=== PATIENT | male | born 1945 | race Caucasian/White ===

== ENCOUNTER 2017-11-12 16:19 | Emergency (ER) | payer OTHER ==
[~2017-11-12] VITALS: Ht 177.8 cm; Wt 83.0 kg
[2017-11-12 16:33] VITALS: TEMP 36.5; Ht 177.8 cm; Wt 83.0 kg
[2017-11-12] MEDS ORDERED: ZOLP10TA PO (17:00)
[2017-11-12] MEDS ORDERED: TAMS0.4C38 PO (17:00)
[2017-11-12] MEDS ORDERED: PRLSR20 PO (17:00)
[2017-11-12] MEDS ORDERED: MCRHC/8025 PO (17:00)
[2017-11-12] MEDS ORDERED: SIMV40TA2 PO (17:00)
[2017-11-12] MEDS ORDERED: MULT-513 PO (17:00)
[2017-11-12] MEDS ORDERED: AMIT10TA6 PO (17:00)
[2017-11-12] MEDS ORDERED: CYAN100020 PO (17:00)
--- NOTE | 2017-11-12 17:33 | EMERGENCY ROOM VISIT NOTE ---
ED Visit Note First contact with patient: 16:40 Patient was seen by our PA/ELECTRONIC HEAT SEAL OPERATOR. I was involved in the patient's care and did evaluate the patient myself. I was involved in the care throughout the ER stay. The patient will be seeing ophthalmology tomorrow for his retinal issues. The retail coverage merchandiser lead was consulted. The patient is stable for discharge.
--- NOTE | 2017-11-12 17:33 | EMERGENCY ROOM VISIT NOTE ---
History First contact with patient: 16:40 Chief Complaint: EYE ASSESSMENT Stated Complaint: VISION PROBLEM WITH L EYE PRIOR RETINAL DAMAGE History of Present Illness The patient is a 72 year old male who presents to the Emergency Room via private vehicle accompanied by female with complaints of "vision problems left thigh, prior retinal damage". The patient states that he has previous retinal damage from an injury 40 years ago. He has been doing well, and did have cataract surgery one year ago. He states that he was fine up until just prior to arrival he was working on a computer, face down and notes that when he went to stand up he noticed vision changes in the left eye. He describes them as looking for a [place] in the left eye. There is a red color change. Vision is blurry. He notes no pain. No trauma. He notes that he has been following with an sewing machinist, Dr. Cheema. Review of Systems A complete 6-point Review of Systems was discussed with the patient, with pertinent positives and negatives listed in the History of Present Illness. All remaining Review of Systems questions can be considered negative unless otherwise specified. Past Medical/Surgical History Previous retinal damage Family History No pertinent Social History Smoking Status: Never Smoker Pt. lives locally with Current/Historical Medications Scheduled Amitriptyline Hcl (Elavil), 10 MG PO DAILY Cyanocobalamin (Vitamin B12), 1 TAB PO DAILY Multivitamins/Minerals (Mvi With Minerals), 1 TAB PO DAILY Omeprazole (Prilosec), 20 MG PO DAILY Simvastatin (Zocor), 40 MG PO QPM Tamsulosin Hcl (Flomax), 0.4 MG PO DAILY Telmisartan/Hctz (Micardis Hct), 1 TAB PO DAILY Zolpidem Tartrate (Ambien), 10 MG PO HS Physical Exam Vital Signs Date Time Temp Pulse Resp B/P (MAP) Pulse Ox O2 Delivery O2 Flow Rate FiO2 11/12/17 17:53 77 18 143/82 98 11/12/17 16:33 36.5 86 20 153/97 97 Room Air Right Eye Acuity: 20/20 Left Eye Acuity: 20/200 Physical Exam VITAL SIGNS - Vital signs and nursing notes were reviewed. Stable. Hypertensive. GENERAL - 72-year-old female appearing his stated age who is in no acute distress. Communicates well with provider and answers questions appropriately. SKIN - Without rashes. EYES - PERRL with EOMI bilaterally. Sclera anicteric. Funduscopic examination reveals within normal limit exam in the central axis of vision in the left eye however to the periphery on funduscopic there is darkening. Right eye unremarkable. Medical Decision & Procedures Medical Decision Patient was seen and evaluated as above. Presents to us today with left eye visual disturbances. He has been following closely with ophthalmology. There is no speech troubles or weakness. No evidence of CVA. Visual acuity disrupted in the left eye. Funduscopic is concerning for that of an abnormality. Case was discussed with the attending physician, and subsequently the on-call sewing machinist, Dr. Cheema. This is to the patient follows with. Dr. Cheema recommended having the patient follow-up tomorrow at his office. This appears to be reasonable. He also recommended having the patient why on his right side, and avoid left side. He is to lay flat. The patient was educated upon management, educated upon worrisome symptoms which to return, had questions answered prior to discharge, and was discharged home in good condition. Medication list reviewed. He is hypertensive likely secondary to situation. In the evaluation and treatment of this patient, the following differential diagnoses were considered: Corneal Abrasion, retinal detachment, Conjunctivitis , Eye Contusion, Globe Injury, Orbital Floor Injury (Blowout Fracture), Corneal Ulcer, Keratitis, Herpes Zoster Opthalmic, Blepharitis, Orbital Cellulitis, Iritis, Scleritis/Episcleritis, Uveitis, Temporal Arteritis, Subconjunctival Hemorrhage. Impression Primary Impression: Visual disturbance of one eye Departure Information Dispostion Home / Self-Care Condition GOOD Referrals Hank Faith MD (PCP) Asif Cheema D.O. Patient Instructions [facility] Additional Instructions You were seen in the emergency Department for visual disturbances in your left eye. I spoke with Dr. Cheema and he would like to see her tomorrow morning in his office at your earliest convenience. Please try to sleep on your right side asleep and with the head of the bed flat. Please avoid left side. Please return with any new/concerning symptoms.
[2017-11-12 17:53] VITALS: BP 143/82; PULSE 77; O2SAT 98
[2017-11-15] MEDS ORDERED: ASPI81TA28 PO (09:36)
== END 2017-11-12 17:56 | disposition home or self-care (01) ==
LOC: C.EDB 16:22 → C.EDD 17:56
DX: H53.8 Other visual disturbances (principal); Z98.49 Cataract extraction status, unspecified eye; Z79.899 Other long term (current) drug therapy; R03.0 Elevated blood-pressure reading, without diagnosis of hypertension

== ENCOUNTER → 2017-11-18 | Day surgery (SDC) | payer OTHER ==
[2017-11-15 09:36] VITALS: Ht 177.8 cm; Wt 79.5 kg
[~2017-11-18] VITALS: Ht 177.8 cm; Wt 79.5 kg
[~2017-11-18] MED LIST: 500ML BSSPLUS 0.5ML EPI1:1000 IRRIG ONE; ACETAMINOPHEN 325 MG TAB PO PRN; AMIT10TA6 PO; ASPI81TA28 PO; ATROPINE SULFATE 0.1 MG/ML 5ML SYR IV PRN; ATROPINE SULFATE 1% OP OINT PER APPLICATION CHARGE ONE; ATROPINE SULFATE 1% OP SOLN 2 ML BTL ONE; BSS FLUSH ONE; BUPIVACAINE HCL 0.75% 10 ML AMP/VIAL ONE; CEFAZOLIN SOD 1 GM VIAL ONE; CYAN100020 PO; DEXAMETHASONE SOD INJ 4 MG/ML VIAL ONE; EpHEDrine SULFATE INJ 50 MG/ML AMP IV PRN; EpINEphrine INJ 1MG/ML AMP 1 MG/ML AMP ONE; FENTANYL CITRATE INJ 50 MCG/1 ML 2 ML VIAL IV PRN; FENTANYL CITRATE INJ 50 MCG/1 ML 2 ML VIAL ONE; HYALURONIDASE HUMAN 150 UNIT/ML INJ ONE; LACTATED RINGER'S 1000ML 500 ML IV SCH; LIDOCAINE HCL 2% 2 ML VIAL (20MG/ML) ONE; MCRHC/8025 PO; MIDAZOLAM HCL 1 MG/ML 2ML VIAL ONE; MULT-513 PO; NEOMYCIN/POLYMYX/DEXAMETH OP OINT PER APP CHARGE ONE; OCUCOAT 1 ML SOLN IO ONE; ONDANSETRON INJ 2 MG/ML 2 ML VIAL IV PRN; POVIDONE-IODINE OP SOLN (SURGERY CNTR CHARGING ONLY) ONE; PRLSR20 PO; PROPARACAINE 0.5% OP SOLN PER DROP CHARGE OPL SCH; PROPOFOL IV EMULSION 10 MG/ML 20 ML VIAL IV ONE; SIMV40TA2 PO; TAMS0.4C38 PO; TIMOLOL MALEATE 0.5% OP SOLN PER DROP CHARGE ONE; TRIAMCINOLONE ACETONIDE OPHTH 40 MG/ML VIAL STERILE IO ONE; ZOLP10TA PO
[2017-11-18] MEDS: PHENYLEPHRINE HCL 2.5% OP SOLN PER DROP CHARGE OPL SCH ×2 (06:39→06:44)
[2017-11-18] MEDS: TROPICAMIDE 1% OP SOLN PER DROP CHARGE OPL SCH ×2 (06:39→06:44)
--- NOTE | 2017-11-18 06:53 | History & Physical Bridge - SC ---
H&P Re-Evaluation Bridge Note: Pt has retinal detachment left eye and is having vitrectomy left eye. I have examined the patient, reviewed the History & Physical and in the interval since the performance of the History & Physical I have noted the following changes of clinical significance: No changes noted
--- NOTE | 2017-11-18 08:26 | [facility] Operative Report ---
Operative Report Operative Date Nov 18, 2017. Pre-Operative Diagnosis Retinal Detachment Post-Operative Diagnosis Same Procedure(s) Performed VITRECTOMY, LASER , GAS Surgeon Dr. Cheema Color Expert Surgeon(s) None Estimated Blood Loss 0 mL Specimens None Anesthesia Type MAC I attest to the content of the Intraoperative Record and any orders documented therein. Any exceptions are noted below.
--- NOTE | 2017-11-18 08:28 | [facility] Operative Report ---
Operative Report Date of Service Nov 18, 2017. Operative Report PREOPERATIVE DIAGNOSIS: Macula-off retinal detachment, left eye. ICD 10: H33.022 POSTOPERATIVE DIAGNOSIS: same. PROCEDURE: 1. Pars plana vitrectomy, 23 gauge. 2. Fluid-air exchange. 3. Endolaser. 4 Air-gas exchange with C3F8 14%. 5. SubTenon's injection of Triescence 20mg. All to the left eye. CPT CODE: 27163 SURGEON: Asif Cheema D.O. COMPLICATIONS: None. ESTIMATED BLOOD LOSS: None. SPECIMENS: None. ANESTHESIA: Retrobulbar block and MAC. INDICATIONS FOR PROCEDURE: Surgery is indicated to decrease risk of vision loss and potentially improve vision. CONSENT: The risks, benefits and alternatives were discussed with the patient including but not limited to decreased visual acuity, failure to achieve desired results, loss of the eye, infection, pain, glaucoma, lens changes, retinal tears, retinal detachment, the need for more procedures, drooping of the eyelid, blindness, and double vision. The patient is aware of risks and consents to the surgery. Consent is signed and on the chart. OPERATION AND FINDINGS: The patient was brought to the operating room where the patient was identified by name, date, and medical record number. The surgical site was confirmed with the informed written consent. The patient was sedated by the anesthesiology team after which a 50:50 mixture of 2% lidocaine and 0.75% bupivacaine with hyaluronidase was administered in a standard retrobulbar fashion. A total of 4 ml was administered without difficulty. The patient was then prepped and draped in the usual sterile manner for retinal surgery. A wire lid speculum was placed and an Mukesh 23-gauge trocar cannula system was employed. The inferior temporal trocar cannula was first placed in an angled fashion 3.75mm posterior to the surgical limbus and the infusion cannula was inserted into this cannula after which the intravitreal position was verified prior to turning the infusion on. Two more trocar cannulas were then inserted in an angled fashion, one in the superior temporal, and one in the superior nasal quadrant both 3.75mm posterior to the surgical limbus. A light pipe and vitrector were then introduced into the eye and the BIOM wide angle viewing system was brought into place. Posterior inspection revealed a retinal detachment from 7 to 3 o'clock. There was noted old laser kessler inferior to the optic nerve and inferior temporally where there was noted old retinal holes from a prior blunt trauma. There was noted an area of schisis superiorly that had been noted in the clinic and documented with OCT with an outer retinal hole with rolled edges. Contiguous with this was a detachment nasally and temporally. Standard core vitrectomy was performed and the vitreous was insured to be totally detached from the posterior pole with the aid of the vitrector. The vitreous base was shaved for 360 degrees. Scleral depression was performed for 360 degrees and no definite retinal tears were noted. Fluid air exchange was performed and the subretinal fluid was drained through a small retinotomy site that was fashioned superior nasal to the optic nerve just nasal to the area of schisis and outer retinal hole. The retina flattened and the Endolaser was then used to place laser around the the vitreous base from 7 to 3 o'clock and the drainage retinotomy and along the edges of the schisis. Next, an air gas exchange was performed with C3F8 14% for a complete fill of the eye. The trocar cannulas were then removed and found to be air tight. The intraocular pressure was found to be within normal limits by palpation and subconjunctival injections of Kefzol and dexamethasone were administered inferiorly and superiorly. A subTenon's injection of Triescence 20mg was also administered inferotemporally. The wire lid speculum was removed. Maxitrol, atropine and timolol were applied to the surface of the eye. A light patch and shield were taped over the surface of the eye and the patient left the Operating Room in stable condition having tolerated the procedure well. DISPOSITION: A gas bracelet was placed on the patient's wrist and gas precautions reviewed as well as the positioning instructions. The patient has an appointment the following morning in the Ophthalmology Clinic. The patient is to call immediately if there are any problems overnight. I attest to the content of the Intraoperative Record and any orders documented therein. Any exceptions are noted below.
[2017-11-18 08:29] VITALS: TEMP 36.2
--- NOTE | 2017-11-18 08:32 | Discharge Instructions-SurgCtr ---
Discharge Instructions Date of Service Nov 18, 2017. Visit Reason for Visit: Left Eye Retinal Detachment Discharge Discharge Diagnosis / Problem: same Discharge Goals Goal(s): Improve function Activity Recommendations Activity Limitations: per Instructions/Follow-up section Anesthesia . Post Anesthesia Instructions: If you have had General Anesthesia or IV Sedation: * Do not drive today. * Resume driving when surgeon permits. * Do not make important decisions or sign legal documents today. * Call surgeon for: 1. Temperature elevations greater than 101 degrees F. 2. Uncontrollable pain. 3. Excessive bleeding. 4. Persistent nausea and vomiting. 5. Medication intolerance (nausea, vomiting or rash). * For nausea and vomiting use only clear liquids such as: tea, soda, bouillon until nausea subsides, then gradually increase diet as tolerated. * If you have any concerns or questions, call your surgeon's office. If physician is unavailable and it is an emergency, call 911 or go to the nearest emergency room. . Instructions / Follow-Up Instructions / Follow-Up * May take Tylenol if needed for discomfort. * Do NOT lay flat on back and position head as follows: face forward chin down as much as possible. Sleep on left side. * Do NOT remove green bracelet until instructed to do so by your surgeon and follow these precautions: * No air travel * No travel above 2500 feet * No nitrous oxide (N2O). * Do NOT remove eye shield. * NO straining, heavy lifting (>15 pounds) or bending below waist. * Avoid getting water or soap directly into operative eye. * Do NOT rub eye. If you experience increasing eye pain not relieved by medication, please contact us immediately at [phone]. If you are unable to reach someone at the above number, call [phone] and ask to speak with the EYE DOCTOR NETWORK SYSTEMS ANALYST. Inform them that you are a Dr. Cheema patient who had recent surgery. Diet Recommendations Home Diet: resume previous diet Procedures Procedures Performed: VITRECTOMY, LASER , GAS Pending Studies Studies pending at discharge: no Medical Emergencies . Who to Call and When: Medical Emergencies: If at any time you feel your situation is an emergency, please call 911 immediately. . Non-Emergent Contact Non-Emergency issues call your: Sound Engineer . . "Provider Documentation" section prepared by Asif Cheema. .
--- NOTE | 2017-11-18 08:53 | Anesthesia Progress Nt - [facility] ---
Anesthesia Post Op Note Date & Time Nov 18, 2017 at 08:53 Vital Signs Pain Intensity: 0 Vital Signs Past 12 Hours Date Time Temp Pulse Resp B/P (MAP) Pulse Ox O2 Delivery O2 Flow Rate FiO2 11/18/17 08:29 36.2 69 16 131/79 (96) 96 11/18/17 06:20 36.5 74 16 159/83 (108) 97 Room Air Notes Mental Status: alert / awake / arousable, participated in evaluation Pt Amnestic to Procedure: Yes Nausea / Vomiting: adequately controlled Pain: adequately controlled Airway Patency, RR, SpO2: stable & adequate BP & HR: stable & adequate Hydration State: stable & adequate Anesthetic Complications: no major complications apparent
[2017-11-18 08:56] VITALS: BP 131/76; PULSE 61; O2SAT 99
== END | disposition home or self-care (01) ==
LOC: X.SURG 06:00
PROVIDERS: ATTEND Ophthalmology
DX: H33.022 Retinal detachment with multiple breaks, left eye (principal); I10 Essential (primary) hypertension; Z79.82 Long term (current) use of aspirin; Z79.899 Other long term (current) drug therapy; Z82.3 Family history of stroke; Z82.49 Family history of ischemic heart disease and other diseases of the circulatory system

== ENCOUNTER → 2018-02-06 | Day surgery (SDC) | payer OTHER ==
[2018-02-05 15:46] VITALS: Ht 177.8 cm; Wt 79.5 kg
[~2018-02-06] VITALS: Ht 177.8 cm; Wt 79.5 kg
[~2018-02-06] MED LIST changes: +INDOCYANINE GREEN 25 MG/10 ML ONE; +PHENYLEPHRINE HCL 10% OP SOLN PER DROP CHARGE ONE; -PROPOFOL IV EMULSION 10 MG/ML 20 ML VIAL IV ONE; +PROPOFOL IV EMULSION 10 MG/ML 20 ML VIAL ONE; -TRIAMCINOLONE ACETONIDE OPHTH 40 MG/ML VIAL STERILE IO ONE; +TRIAMCINOLONE ACETONIDE OPHTH 40 MG/ML VIAL STERILE ONE
[2018-02-06] MEDS: PHENYLEPHRINE HCL 2.5% OP SOLN PER DROP CHARGE OPL SCH ×2 (11:37→11:42)
[2018-02-06] MEDS: TROPICAMIDE 1% OP SOLN PER DROP CHARGE OPL SCH ×2 (11:38→11:43)
--- NOTE | 2018-02-06 13:15 | [facility] Post Operative Brief Note ---
Immediate Operative Summary Operative Date February 06, 2018. Pre-Operative Diagnosis Left Eye Retinal Detachment Post-Operative Diagnosis Same Procedure(s) Performed Left Eye 23 Gauge Vitrectomy with Endo Laser, Instillation of C3F8 Gas Surgeon Dr. Cheema Chain Tender Surgeon(s) None Estimated Blood Loss 0 mL Findings Consistent with Post-Op Diagnosis Specimens None Anesthesia Type MAC
--- NOTE | 2018-02-06 13:16 | Discharge Instructions-SurgCtr ---
Discharge Instructions Date of Service February 06, 2018. Visit Reason for Visit: Left Eye Retinal Detachment Discharge Discharge Diagnosis / Problem: same Discharge Goals Goal(s): Improve function Activity Recommendations Activity Limitations: per Instructions/Follow-up section Anesthesia . Post Anesthesia Instructions: If you have had General Anesthesia or IV Sedation: * Do not drive today. * Resume driving when surgeon permits. * Do not make important decisions or sign legal documents today. * Call surgeon for: 1. Temperature elevations greater than 101 degrees F. 2. Uncontrollable pain. 3. Excessive bleeding. 4. Persistent nausea and vomiting. 5. Medication intolerance (nausea, vomiting or rash). * For nausea and vomiting use only clear liquids such as: tea, soda, bouillon until nausea subsides, then gradually increase diet as tolerated. * If you have any concerns or questions, call your surgeon's office. If physician is unavailable and it is an emergency, call 911 or go to the nearest emergency room. . Instructions / Follow-Up Instructions / Follow-Up * May take Tylenol if needed for discomfort. * Do NOT lay flat on back and position head as follows: right side down or face down as much as possible * Do NOT remove green bracelet until instructed to do so by your surgeon and follow these precautions: * No air travel * No travel above 2500 feet * No nitrous oxide (N2O). * Do NOT remove eye shield. * NO straining, heavy lifting (>15 pounds) or bending below waist. * Avoid getting water or soap directly into operative eye. * Do NOT rub eye. If you experience increasing eye pain not relieved by medication, please contact us immediately at [phone]. If you are unable to reach someone at the above number, call [phone] and ask to speak with the EYE DOCTOR SENIOR DESIGN ENGINEER. Inform them that you are a Dr. Cheema patient who had recent surgery. Diet Recommendations Home Diet: resume previous diet Procedures Procedures Performed: Left Eye 23 Gauge Vitrectomy with Endo Laser, Instillation of C3F8 Gas Pending Studies Studies pending at discharge: no Medical Emergencies . Who to Call and When: Medical Emergencies: If at any time you feel your situation is an emergency, please call 911 immediately. . Non-Emergent Contact Non-Emergency issues call your: Casing Runner . . "Provider Documentation" section prepared by Asif Cheema. .
--- NOTE | 2018-02-06 13:19 | [facility] Operative Report ---
Operative Report Date of Service February 06, 2018. Operative Report PREOPERATIVE DIAGNOSIS: Macula-splitting retinal detachment, left eye. ICD 10: H33.012 POSTOPERATIVE DIAGNOSIS: same. PROCEDURE: 1. Pars plana vitrectomy, 23 gauge. 2. Fluid-air exchange. 3. Endolaser. 4 Air-gas exchange with C3F8 14%. All to the left eye. CPT CODE: 04889 SURGEON: Asif Cheema D.O. COMPLICATIONS: None. ESTIMATED BLOOD LOSS: None. SPECIMENS: None. ANESTHESIA: Retrobulbar block and MAC. INDICATIONS FOR PROCEDURE: Surgery is indicated to decrease risk of vision loss and potentially improve vision. CONSENT: The risks, benefits and alternatives were discussed with the patient including but not limited to decreased visual acuity, failure to achieve desired results, loss of the eye, infection, pain, glaucoma, lens changes, retinal tears, retinal detachment, the need for more procedures, drooping of the eyelid, blindness, and double vision. The patient is aware of risks and consents to the surgery. Consent is signed and on the chart. OPERATION AND FINDINGS: The patient was brought to the operating room where the patient was identified by name, date, and medical record number. The surgical site was confirmed with the informed written consent. The patient was sedated by the anesthesiology team after which a 50:50 mixture of 2% lidocaine and 0.75% bupivacaine with hyaluronidase was administered in a standard retrobulbar fashion. A total of 4 ml was administered without difficulty. The patient was then prepped and draped in the usual sterile manner for retinal surgery. A wire lid speculum was placed and an Mukesh 23-gauge trocar cannula system was employed. The inferior temporal trocar cannula was first placed in an angled fashion 3.75mm posterior to the surgical limbus and the infusion cannula was inserted into this cannula after which the intravitreal position was verified prior to turning the infusion on. Two more trocar cannulas were then inserted in an angled fashion, one in the superior temporal, and one in the superior nasal quadrant both 3.75mm posterior to the surgical limbus. A light pipe and vitrector were then introduced into the eye and the BIOM wide angle viewing system was brought into place. Posterior inspection revealed a retinal detachment from 1 to 3:30 o'clock with no obvious retinal tears. There was remaining gas fill from a prior procedure. The detachment extending into the macula but it was unable to determine if it extended into the fovea. There was noted prior laser scars nasally and superiorly and these areas were nicely attached. There was also noted an old large complex retinal tear inferior temporally w/ good laser barrier but the retinal detachment seemed to extend into that peripherally. Standard core vitrectomy was performed. At this point scleral depression was performed for 360 degrees and no other retinal tears were noted. Fluid air exchange was performed and the subretinal fluid was drained through a small retinotomy site that was fashioned superior temporally to the macula. Endolaser was then used to place laser around the drainage retinotomy and from 12 to 4 o'clock connecting the previous areas of laser. Next, an air gas exchange was performed with C3F8 14% for a complete fill of the eye. The trocar cannulas were then removed and found to be air tight. The intraocular pressure was found to be within normal limits by palpation and subconjunctival injections of Kefzol and dexamethasone were administered inferiorly and superiorly. The wire lid speculum was removed. Maxitrol, atropine and timolol were applied to the surface of the eye. A light patch and shield were taped over the surface of the eye and the patient left the Operating Room in stable condition having tolerated the procedure well. DISPOSITION: A gas bracelet was placed on the patient's wrist and gas precautions reviewed as well as the positioning instructions. The patient has an appointment the following morning in the Ophthalmology Clinic. The patient is to call immediately if there are any problems overnight. I attest to the content of the Intraoperative Record and any orders documented therein. Any exceptions are noted below.
--- NOTE | 2018-02-06 13:32 | Anesthesia Progress Nt - [facility] ---
Anesthesia Post Op Note Date & Time February 06, 2018 at 13:32 Vital Signs Pain Intensity: 0 Vital Signs Past 12 Hours Date Time Temp Pulse Resp B/P (MAP) Pulse Ox O2 Delivery O2 Flow Rate FiO2 02/06/18 13:18 36.9 75 16 113/68 (83) 96 Room Air 02/06/18 11:16 36.6 80 16 150/83 (105) 99 Room Air Notes Mental Status: alert / awake / arousable, participated in evaluation Pt Amnestic to Procedure: Yes Nausea / Vomiting: adequately controlled Pain: adequately controlled Airway Patency, RR, SpO2: stable & adequate BP & HR: stable & adequate Hydration State: stable & adequate Anesthetic Complications: no major complications apparent
[2018-02-06 13:35] VITALS: BP 108/68; PULSE 80; O2SAT 99
== END | disposition home or self-care (01) ==
LOC: X.SURG 11:05
PROVIDERS: ATTEND Ophthalmology
DX: H33.012 Retinal detachment with single break, left eye (principal); K21.9 Gastro-esophageal reflux disease without esophagitis; I10 Essential (primary) hypertension; Z79.899 Other long term (current) drug therapy; Z79.82 Long term (current) use of aspirin; Z82.3 Family history of stroke; Z82.49 Family history of ischemic heart disease and other diseases of the circulatory system; Z88.2 Allergy status to sulfonamides

== ENCOUNTER 2020-08-29 10:29 | Observation (INO) ==
--- NOTE | 2020-08-08 15:57 | PAT Medication Instructions ---
Medication Instructions Date of Service August 08, 2020 Home Medications Medication Instructions Recorded Tramaine Mckinney #1 ea 07/25/20 amitriptyline 25 mg PO HS nitroglycerin 0.4 mg SUBLINGUAL DIRECTED PRN zolpidem [Ambien] 10 mg PO HS PRN atorvastatin 80 mg PO HS famotidine [Pepcid AC Maximum Strength] 20 mg PO HS metoprolol succinate 25 mg PO QAM tamsulosin 0.4 mg PO QAM telmisartan 20 mg PO QAM Continue as directed nitroglycerin 0.4 mg SUBLINGUAL DIRECTED PRN (if needed) DO NOT take the morning of surgery telmisartan 20 mg PO QAM Take morning of surgery With a small sip of water, OTHERWISE NOTHING TO EAT OR DRINK AFTER MIDNIGHT: metoprolol succinate 25 mg PO QAM tamsulosin 0.4 mg PO QAM Take evening before surgery amitriptyline 25 mg PO HS zolpidem [Ambien] 10 mg PO HS PRN(if needed) atorvastatin 80 mg PO HS famotidine [Pepcid AC Maximum Strength] 20 mg PO HS Other Notes If you have any questions please call us at [phone] or [phone] or [phone] or [phone]
--- NOTE | 2020-08-09 09:41 | Anesthesiology Consultation ---
Date of Service August 09, 2020 Assessment & Plan (1) Encounter for pre-operative examination: Chart Review Chart Review: Acceptable Risk for Surgery (pending preop Covid testing ) and Patient seen in Pre Admission Testing Per PAT appt on 08/09/20, patient denies any recent traveling. No known Covid positive contacts or Covid related symptoms. Per patient- scheduled for preop Covid testing 08/23/20 at [facility]. Educated on importance of self quarantining, social distancing and wearing mask in public both for the patient and household contacts. Seen by cardiology 08/05/2020 = seen for preop cardiac assessment. Patient describing stable cardiac signs and symptoms. History of chronic coronary heart disease and underwent CABG x3 one year ago. "He is stable from a cardiac perspective to proceed with orthopedic surgery without further cardiac testing an estimated low risk of perioperative cardiac complication." Would recommend patient continue ASA therapy uninterrupted. Teaching & Discussion Pre-Anesthesia Teaching/Discussion Notes: Instructed NPO after midnight before surgery,except medications with 15 cc of water. Medication instructions provided according to the PAT guidelines. History Surgery Operation Date: 08/29/20 11:10 Proposed Procedures p Left Total Knee Arthroplasty - Laurent Diaz MD Height/Weight Height: 5 ft 9 in Weight: 77.2 kg Allergies Allergy/AdvReac Type Severity Reaction Status Date / Time Sulfa (Sulfonamide Allergy Mild Rash Verified 08/01/20 15:11 Antibiotics) Medications Home Medications Medication Instructions Recorded Confirmed Last Taken amitriptyline 25 mg PO HS 08/01/19 08/01/20 05/03/20 nitroglycerin 0.4 mg SUBLINGUAL DIRECTED PRN 08/01/19 08/01/20 Unknown zolpidem [Ambien] 10 mg PO HS PRN 08/02/19 08/01/20 Unknown atorvastatin 80 mg PO HS 05/04/20 08/01/20 05/03/20 famotidine [Pepcid AC Maximum 20 mg PO HS 05/04/20 08/01/20 05/03/20 Strength] metoprolol succinate 25 mg PO QAM 05/04/20 08/01/20 05/03/20 tamsulosin 0.4 mg PO QAM 05/04/20 08/01/20 05/03/20 Wheeled Walker #1 ea 07/25/20 07/25/20 Unknown telmisartan 20 mg PO QAM 08/01/20 08/01/20 Unknown Past Medical History Medical History BPH (benign prostatic hyperplasia) CAD (coronary artery disease) S/p 3 vessel CABG 07/2019 GERD (gastroesophageal reflux disease) Stable and controlled with Pepcid Hearing deficit Occ hearing aids Hyperlipidemia Hypertension Osteoarthritis Thyroid cyst Benign- only follows PRN Exercise / Class Metabolic Activity II 4-5 Yardwork/Stairs/Walk up hill (ONE FLIGHT OF STAIRS- NO CHEST PAIN OR SOB - WALKS 4 MILES DAILY ) Past Family History Family History Father Colon cancer Past Surgical History Surgical History History of cardiac catheterization 07/2019 ---> CABG History of cataract surgery History of colonoscopy History of coronary artery bypass graft CABG x3 on 08/07/2019: STARKS TO LAD; SVG TO OM; SVG TO PDA Follows w/ Dr. Solomon History of tooth extraction History of vitrectomy Left - 05/04/2020 [facility] [place], [place] Past Anesthesia History No Hx of Anesthesia Complications and No Family Hx of Anesthesia Complications History of PONV No Hx of PONV and No Hx of Motion Sickness Social History Smoking Status: Never smoker Do You Dip or Chew Tobacco: No Hx Alcohol Use: Yes alcohol intake frequency: holidays/special occasions only Hx Substance Use: No substance use type: does not use Review of Systems Occ snoring - no recent issues- no hx of sleep study Patient denies chest pain, shortness of breath, dyspnea on exertion, cough, wheezing, palpitations. No hx of seizures, stroke. No hx of blood clots or blood transfusions Physical Exam Vital Signs VITALS BP 115/80 P 68 TEMP 98.3 SP02 98% RESP 16 Constitutional no acute distress ENMT Mouth: no TMJ clicking Thyromental Distance: > or= 3.5 Finger Breadths (3.5) Mallampati Class: II Permanent implant right side tooth on top side Capped on molars Neck neck extension not limited Respiratory normal respiratory effort; no respiratory distress Auscultation: lungs clear to auscultation bilaterally; no wheezes Cardiovascular Rate/Rhythm: regular rate and regular rhythm Heart Sounds: no murmur Vessels: no carotid bruit Musculoskeletal Spine: no pain with cervical ROM Extremities: extremities normal to inspection Psychiatric Orientation: alert Testing Laboratory Results 08/09/20 10:17 PT 11.1 Seconds (9.0-12.0) 08/09/20 10:17 INR 1.1 (0.9-1.1) 08/09/20 10:17 APTT 28.3 Seconds (21.0-31.0) 08/09/20 10:17 Blood Type O Positive 08/09/20 10:17 Antibody Screen NEGATIVE 08/09/20 10:17 07/29/20= SODIUM: 145 POTASSIUM: 4.6 CHLORIDE: 105 CO2: 31 BUN: 21 CREATININE: 1.0 GLUCOSE: 109 Electrocardiogram Date: 08/05/20 SR with 1st degree AVB at 62 bpm. Possible anterior infarct (cited on or before Sep 02, 2019). No significant pleitez ges was found compared to 09/02/19 EKG per cardio. (Per 08/05/2020 cardiology noteEKG reviewed independently by cardiololgistEKG unchanged compared to his previous post CABG EKG performed as an outpatient 09/02/2019). Chest X-Ray Date: 08/05/20 Findings: + NAD Echocardiogram Date: 10/22/19 EF: 55-59% LV Function: normal RWMA: + none Other Findings: + LVH (Mild/concentric) and + diastolic dysfunction (Grade 1) Valvular Disease: + no significant valvular disease Stress Test Date: 07/28/19 Type: exercise (ECHO ) Resting EF: 65% Resting LV Function: normal Resting RWMA: + none Positive exercise stress echocardiogram for ischemia in the LAD territory. Positive stress EKG for ischemia at 93% MPHR. Reduction in LVEF to 35% at peak stress. At peak stress there is severe hypokinesis to akinesis of the mid to apical septal and apical anterior, lateral and inferior segments. Patient referred for cardiac catheterization. Cardiac Catheterization Date: 08/06/19 LMCA= 90% stenosis Ostial to proximal LAD diffusely diseased (40% stenosis) LCx= mildly diseased. RCA =70% mid stenosis. Distal LAD, first OM, RCA (PDA) are good targets for bypass. Left SC angiography no evidence of SC stenosis and patent STARKS. Recommendations: Critical LM disease (nonobstructive RCA disease). CT surgery consulted for CABG.
[2020-08-09 10:46] LABS: Basophils # (auto) 0.02 K/uL (0-0.2); Basophils % (auto) 0.4 %; Eosinophils # (auto) 0.14 K/uL (0-0.5); Eosinophils % (auto) 2.9 %; Hematocrit (blood only) 41.6 % (42-52); Hemoglobin 14.1 g/dL (14.0-18.0); Immature Granulocytes # (auto) 0.01 K/uL (0.00-0.02); Immature Granulocytes % (auto) 0.2 %; Lymphocytes # (auto) 1.06 K/uL (1.2-3.4); Lymphocytes % (auto) 21.6 %; Mean Corpuscular Hemoglobin 32.3 pg (25-34); Mean Corpuscular Hgb Conc 33.9 g/dL (32-36); Mean Corpuscular Volume 95.4 fL (80-100); Mean Platelet Volume 10.5 fL (7.4-10.4); Monocytes % (auto) 10.2 %; Neutrophils # (auto) 3.17 K/uL (1.4-6.5); Neutrophils % (auto) 64.7 %; Platelet Count 157 K/uL (130-400); RDW Coefficient of Variation 12.5 % (11.5-14.5); RDW Standard Deviation 43.4 fL (36.4-46.3); Red Blood Count 4.36 M/uL (4.7-6.1)
[2020-08-09 10:57] LABS: INR 1.1 (0.9-1.1); Partial Thromboplastin Time 28.3 Seconds (21.0-31.0); Prothrombin Time 11.1 Seconds (9.0-12.0)
--- NOTE | 2020-08-09 11:00 | XRay Report ---
XR chest Pre-admission PA/Lat CLINICAL HISTORY: Preoperative evaluation. COMPARISON STUDY: No previous studies for comparison. FINDINGS: Lung volumes are mildly increased. Lungs are clear. There is no pneumothorax or pleural eff usion. Cardiac size is normal. Mediastinal contours are normal. There is no evidence for pulmonary ed natalia. Incidental note is made of median sternotomy wires and mediastinal surgical clips. IMPRESSION: No acute cardiopulmonary findings. ACT 112: Negative or not required by law. Electronically signed by: Eduardo Joradn M.D. 08/09/2020 10:59 AM
--- NOTE | 2020-08-23 14:52 | History and Physical Report ---
DATE OF ADMISSION: 08/29/2020 CHIEF COMPLAINT: Persistent left knee pain and discomfort. HISTORY OF PRESENT ILLNESS: The patient is a 75-year-old male who is referred by my partner, Dr. Reynaga for surgical treatment of his left knee. He has got a long history of left knee pain and discomfort that has gradually gotten worse over the past several years. He has been followed by Dr. Reynaga with injections in the knee, which helped him for about 6 weeks max. He has had more and more pain and difficulty getting around. Pain is mostly medial, but some global pain. The more he is on it, the more it hurts and the more he limps. it swells more as the day goes on. He denies any groin pain. He would really like to have his left knee fixed. Of note, the patient does have a significant cardiac history and now 1 year out from a triple bypass surgery done at [facility]. He has done well from this. Denies any cardiac symptoms. PAST MEDICAL HISTORY: 1. Hypertension. 2. Elevated cholesterol. 3. Coronary artery disease status post triple bypass surgery at [facility] 1 year ago. 4. Gastroesophageal reflux disease. 5. Kidney stones. PAST SURGICAL HISTORY: Include: 1. Right knee surgery x3. 2. Triple bypass surgery done on 08/07/2019 at [facility]. ALLERGIES: SULFA. CURRENT MEDICINES: Include: 1. Amitriptyline 25 mg at nighttime. 2. Atorvastatin 80 mg a day. 3. Pepcid 20 mg at nighttime. 4. Metoprolol 20 mg at nighttime. 5. Nitroglycerin p.r.n. 6. Tamsulosin 0.4 mg. 7. Ambien 10 mg at bedtime. SOCIAL HISTORY: A 75-year-old male. He lives in [place]. Does not smoke. Two drinks per week. FAMILY HISTORY: Noncontributory. REVIEW OF SYSTEMS: Negative for diabetes. Denies any current chest pain or shortness of breath. No history of DVT or PE. No known bleeding problems. He does have a significant cardiac history as described above. PHYSICAL EXAMINATION: GENERAL: Shows a thin, healthy appearing, middle-aged male. HEENT: Benign. NECK: Supple with no lymphadenopathy. LUNGS: Clear to auscultation. HEART: Has a regular rate and rhythm. ABDOMEN: Soft, nontender, nondistended. EXTREMITIES: Grossly neurovascularly intact except as follows. Examination of the left knee reveals the patient walks independently. He does have a varus alignment to his knee with a varus thrust with weightbearing. He has got bony hypertrophy medially. He is tender along the medial joint line. Range of motion about 5 degrees short of full extension to 120 degrees of flexion. He has no instability. No pain with hip motion. X-RAYS: X-rays of the left knee were reviewed. It shows advanced left knee DJD. He has complete loss of his medial joint space. He has subchondral sclerosis. He has got osteophytes off the medial femoral condyle and medial tibial plateau. There is some destruction of the medial tibial plateau. He has got moderate patellofemoral arthritis. ASSESSMENT: A 75-year-old male with advanced left knee degenerative joint disease. He has failed all conservative measures and would like to have his knee fixed. He does have a significant cardiac history and now a year out from bypass surgery. He has been cleared by Dr. Solomon his strapping machine tender. PLAN: We discussed treatment options. We are going to proceed with a left knee replacement. The risks and benefits of left total knee replacement were explained to the patient and include but not limited to DVT, PE, , infection, neurological injury, vascular injury, bleeding problem, pain, limited range of motion, stiffness, failure to relieve symptoms, incomplete relief of symptoms, need for further surgery in future, fracture, leg length inequality, nerve palsy, persistent pain, etc. The patient understands and desires to proceed. Informed consent was obtained. We will make sure he stays on his medicines in the perioperative period. He will continue on his aspirin and his beta frantz as well.
[~2020-08-29 10:29] MED LIST changes: -500ML BSSPLUS 0.5ML EPI1:1000 IRRIG ONE; -ACETAMINOPHEN 325 MG TAB PO PRN; +ACETAMINOPHEN 500 MG TAB PO SCH; -AMIT10TA6 PO; -ASPI81TA28 PO; -ATROPINE SULFATE 0.1 MG/ML 5ML SYR IV PRN; -ATROPINE SULFATE 1% OP OINT PER APPLICATION CHARGE ONE; -ATROPINE SULFATE 1% OP SOLN 2 ML BTL ONE; -BSS FLUSH ONE; +BUPIVACAINE 0.25% 30 ML VIAL ONE; +BUPIVACAINE 0.5 % 5 MG/1 ML PF 10ML VIAL ONE; -BUPIVACAINE HCL 0.75% 10 ML AMP/VIAL ONE; +BUPIVACAINE LIPOSOME/PF 266 MG, BUPIVACAINE/EPINEPHRINE 50 ML, SODIUM CHLORIDE 0.9% 30 ... INFIL SCH; -CEFAZOLIN SOD 1 GM VIAL ONE; -CYAN100020 PO; +EPINEPHrine INJ 1 MG/ML AMP ONE; -EpHEDrine SULFATE INJ 50 MG/ML AMP IV PRN; -EpINEphrine INJ 1MG/ML AMP 1 MG/ML AMP ONE; +FAMOTIDINE 20 MG TAB PO SCH; -FENTANYL CITRATE INJ 50 MCG/1 ML 2 ML VIAL IV PRN; -FENTANYL CITRATE INJ 50 MCG/1 ML 2 ML VIAL ONE; +GABAPENTIN 300 MG CAP PO SCH; -HYALURONIDASE HUMAN 150 UNIT/ML INJ ONE; -INDOCYANINE GREEN 25 MG/10 ML ONE; -LACTATED RINGER'S 1000ML 500 ML IV SCH; -LIDOCAINE HCL 2% 2 ML VIAL (20MG/ML) ONE; +LR 500ML BOLUS, THEN 15ML/HR IV SCH; +LR 60ML/HR IV SCH; -MCRHC/8025 PO; -MULT-513 PO; -NEOMYCIN/POLYMYX/DEXAMETH OP OINT PER APP CHARGE ONE; -OCUCOAT 1 ML SOLN IO ONE; -ONDANSETRON INJ 2 MG/ML 2 ML VIAL IV PRN; -PHENYLEPHRINE HCL 10% OP SOLN PER DROP CHARGE ONE; -POVIDONE-IODINE OP SOLN (SURGERY CNTR CHARGING ONLY) ONE; -PRLSR20 PO; -PROPARACAINE 0.5% OP SOLN PER DROP CHARGE OPL SCH; -PROPOFOL IV EMULSION 10 MG/ML 20 ML VIAL ONE; -SIMV40TA2 PO; -TAMS0.4C38 PO; -TIMOLOL MALEATE 0.5% OP SOLN PER DROP CHARGE ONE; +TRANEXAMIC ACID 1,000 MG **IV Intra-op IV SCH; -TRIAMCINOLONE ACETONIDE OPHTH 40 MG/ML VIAL STERILE ONE; -ZOLP10TA PO; +ceFAZolin 2000MG 2,000 MG/15 ML SYR IV SCH
--- NOTE | 2020-08-29 10:53 | History & Physical Bridge Note ---
Date of Service August 29, 2020 History & Physical Bridge Note I have examined the patient, reviewed the History & Physical and in the interval since the performance of the History & Physical I have noted the following changes of clinical significance: no changes noted
[2020-08-29] MEDS ORDERED: BUPIVACAINE LIPOSOME 1.3% 266 MG/20 ML VIAL ONE (11:54)
[2020-08-29] MEDS ORDERED: SODIUM CHLORIDE 0.9% PF 50 ML VIAL ONE (11:54)
[2020-08-29] MEDS ORDERED: BACITRACIN INJ 50,000 UNIT VIAL ONE (11:54)
[2020-08-29] MEDS ORDERED: BUPIVACAINE 0.25% 30 ML VIAL ONE (11:55)
[2020-08-29] MEDS ORDERED: EPINEPHrine INJ 1 MG/ML AMP ONE (11:55)
[2020-08-29] MEDS ORDERED: ePHEDrine sulfate 50 MG/ML AMP IV PRN (11:59)
[2020-08-29] MEDS ORDERED: fentaNYL citrate 100 MCG/2 ML VIAL IV PRN (11:59)
[2020-08-29] MEDS ORDERED: ONDANSETRON INJ 2 MG/ML 2 ML VIAL IV PRN ×2 (11:59→16:21)
[2020-08-29] MEDS ORDERED: ATROPINE SULFATE 0.1 MG/ML 10ML SYR IV PRN (11:59)
[2020-08-29] MEDS ORDERED: MIDAZOLAM HCL 1 MG/ML 2ML VIAL ONE (13:23)
[2020-08-29] MEDS ORDERED: PROPOFOL IV EMULSION 10 MG/ML 20 ML VIAL IV ONE ×2 (13:28→13:58)
[2020-08-29] MEDS ORDERED: LIDOCAINE HCL 2% 2 ML VIAL/AMP(20MG/ML) INFIL ONE (13:28)
--- NOTE | 2020-08-29 15:16 | Post Operative Brief Note ---
PG Immediate Post Op with CF Date of Surgery August 29, 2020 Pre & Post Diagnosis Operation Date: 08/29/20 12:30 Pre-Op Diagnosis: Left Knee Advanced Degenerative Joint Disease Post-Op Diagnosis: Left Knee Advanced Degenerative Joint Disease I identified the patient and participated in the time-out.: Yes Procedure Operation Date: 08/29/20 12:30 Actual Procedures p Left Total Knee Arthroplasty(Left) - Laurent Diaz MD Surgeon Laurent Diaz MD Clipper Automatic Minor, PAC Estimated Blood Loss 50 Findings Consistent with Post-Op Diagnosis Fluids 1200 cc Specimens Specimen Description: A. Left Knee Bone and Tissue Drains Oates Catheter Anesthesia Type Spinal Complications none Disposition Accompanied Patient To Recovery: Yes Disposition: Recovery Room
--- NOTE | 2020-08-29 15:35 | XRay Report ---
TWO VIEWS LEFT KNEE CLINICAL HISTORY: Postoperative examination. FINDINGS: AP and crosstable lateral portable views of the left knee are obtained. A left knee arthrop lasty is in near anatomic alignment. There has been undersurface remodeling of the patella. No acute fracture is seen. There are expected postoperative changes around the knee including skin clips, sof t tissue edema, and subcutaneous gas. There is atherosclerotic calcification of the popliteal artery. IMPRESSION: Expected postoperative changes status post left knee arthroplasty. No acute fracture is s een. ACT 112: Negative or not required by law. Electronically signed by: Doni Santos M.D. 08/29/2020 3:34 PM
--- NOTE | 2020-08-29 15:36 | Anesthesiology Progress Note ---
Date of Service August 29, 2020 Anesthesia Post Procedure Vital Signs Vital Signs: Temp Pulse Pulse Resp BP Pulse Ox 08/29/20 15:25 61 13 118/67 99 08/29/20 15:18 36.9 C 64 19 105/64 98 08/29/20 11:30 62 18 169/85 H 100 08/29/20 10:57 36.5 C 71 20 175/90 H 100 Transfer of Care Handoff Completed per policy Notes Mental Status: alert / awake / arousable Patient Amnestic to Procedure: Yes Nausea / Vomiting: adequately controlled Pain: adequately controlled Airway Patency, RR, SpO2: stable & adequate BP & HR: stable & adequate Hydration State: stable & adequate Neuraxial Anesthesia: was administered and sensory block is resolving Anesthetic Complications: no major complications apparent and Pt Satisfied with anesthetic care
[2020-08-29] MEDS ORDERED: bisacodyL 10 MG SUPP PR PRN (16:21)
[2020-08-29] MEDS ORDERED: NITROGLYCERIN SL 0.4 MG/TAB TAB SL PRN (16:21)
[2020-08-29] MEDS ORDERED: ZOLPIDEM TARTRATE 10 MG TAB PO PRN (16:21)
[2020-08-29] MEDS ORDERED: ALUMINUM/MAGNESIUM SUSP 30 ML UDC PO PRN (16:21)
[2020-08-29] MEDS ORDERED: NALOXONE HCL 0.4 MG/1 ML VIAL/CARP IV PRN (16:21)
[2020-08-29] MEDS ORDERED: MAGNESIUM HYDROXIDE SUSP 30 ML UDC PO PRN (16:21)
[2020-08-29] MEDS ORDERED: HYDROmorphone INJ 0.5 MG/0.5 ML SYR IV PRN (16:21)
[2020-08-29] MEDS ORDERED: traMADol HCL 50 MG TABLET PO PRN (16:21)
[2020-08-29] MEDS ORDERED: METOCLOPRAMIDE HCL INJ 5 MG/ML 2 ML VIAL IV PRN (16:21)
--- NOTE | 2020-08-29 17:31 | Operative Report ---
Post Operative Report Pre & Post Diagnosis Operation Date: 08/29/20 12:30 Pre-Op Diagnosis: Left Knee Advanced Degenerative Joint Disease Post-Op Diagnosis: Left Knee Advanced Degenerative Joint Disease I identified the patient and participated in the time-out.: Yes Procedure Operation Date: 08/29/20 12:30 Actual Procedures p Left Total Knee Arthroplasty(Left) - Laurent Diaz MD Surgeon Laurent Diaz MD Activities Director Scouting Minor, PAC Estimated Blood Loss 50 Findings Consistent with Post-Op Diagnosis Operative findings revealed advanced left knee DJD. He had extensive grade 4 [id number] disease of the medial compartment with eburnation of the medial femoral condyle medial tibial plateau. He had a fixed varus deformity to his knee and about a 10 degree flexion contracture. He had moderate patellofemoral changes. Fairly mild lateral compartment disease. Large knee joint effusion. Fluids 1200 cc. Specimens Left knee sent for pathology. Drains None. Complications none Disposition Accompanied Patient To Recovery: Yes Disposition: Recovery Room Indications Patient is a 75-year-old gentleman said a long history of left knee pain discomfort describes gotten worse over time. He has been through extensive conservative treatment provided by my partner. He elected to proceed with surgical treatment. Description of Procedure Operative implants consist of: 1. Biomet Vanguard size 70 left posterior stabilized femoral component. 2. Biomet size 79 tibial tray. 3. 10 mm posterior stabilized polyethylene insert. 4. 31 x 8 all polypatella. The patient was taken to the operating room identified and placed on the operating table supine position but all contact areas were properly padded. IV antibiotics tried by anesthesia team. A spinal anesthetic and abductor canal block had been provided in the holding area. Oates catheter was placed in sterile fashion for the left thigh tip was then placed in the left lower extremity was then prepped and draped in usual sterile fashion. Left leg was elevated exsanguinated with use of an Esmarch interspace at 3 mmHg. An anterior approach to the left knee was then performed to longitudinal incision centered over the patella. Sharp dissection Through subcutaneous tissue down to the extensor mechanism. A medial parapatellar arthrotomy incision was made. Some subperiosteal dissection was carried out medially. The fat pad was dissected from each patella tendon. Lateral patellofemoral ligament was released. The patella was subluxated laterally and the knee was flexed. The osteophytes were taken off distal femur. The ACL and PCL were then released from distal femur and the tibia subluxate anteriorly. The external tibial alignment jig was then placed in the interface the tibia and adjusted 16 mm medially. Proximal tibial cut was made to remove about a millimeter bone from most efficient aspect medial tibial plateau. The tibia sized to a size 79. Some osteophytes were taken off medially. We did well and try to maximize his coverage. Attention drawn the femur. The distal femur there with a sharp drop with intramedullary canal was suction. A left 6 degree valgus cutting guide was placed but distal femoral cutting block was pinned in place. Distal femoral cut was made to take an additional 3 mm bone off distal femur. The femur was then sized to a size 70. The AP cutting block was pinned parallel to the epicondylar axis which was 5 degrees of external rotation. The anterior cut, anterior chamfer, posterior cut, posterior chamfer cuts were made. Box cutting guide was placed in just slight lateral box cut was made. The knee was flexed. The remnants of the medial lateral menisci were excised but the osteophytes were taken off the posterior aspect the femur. A trial femoral component was placed but the tibial tray was pinned in maximum external rotation and the drill and stem punch were used to create defect in the proximal tibia for the tibial tray. The knee was then trialed and the 10 mm insert fit most appropriately. Attention drawn the patella. Patella was cleaned of all soft tissues. Patella thickness measured 23 mm in thickness was cut down to 15. Was sized to a size 31 patella. The lug holes were drilled for 31 patella. The lateral osteophyte is moved. Patella button was placed. Knee was taken through range of motion patella tracked nicely with no thumbs test. Attention drawn to place the permanent components. All trial components were removed. Bone plug was placed in the distal femur to limit blood loss put a double batch [place] G cement was mixed. A Biomet Vanguard size 70 left posterior stabilized femoral component, size 79 tibial tray, 10 mm posterior stabilized polyethylene insert, and a 31 x 8 all polypatella then cement in place. Knee was brought out in full extension total cement hardened. Final cement check was then performed. The pericapsular tissues were injected with total of 100 cc of combination of 20 cc of Exparel, 30 cc normal saline, 50 cc of quarter percent Marcaine with epinephrine. Misa ent did receive 1 g tranexamic acid per the tech was let down for final tourniquet time of 72 minutes. Hemostasis assured use electrocautery. Extensor mechanism closed with combination 1 PDS suture #1 Vicryl suture in [id number] fashion. Extensor mechanism checked found to be intact the subcutaneous tissues then closed with 2 Dexon suture in a buried interrupted fashion skin was closed skin pio. Leg was then cleaned and dried a sterile dressing was Xeroform, 4 x 4's, sterile cast padding, Gwyn bandage were applied. Patient transferred to the recovery room in stable condition. The patient tolerated the procedure well and there were no complications. Hank Cazares, my PA, was present for the entire procedure. His assistance was essential and required for appropriate patient positioning, prepping and draping, surgical exposure, performing the technical details of the operation, placement the implants, closure of the wound, and placement of the sterile bandage. I attest to the content of the Intraoperative Record and any orders documented therein. Any exceptions are noted below.
[2020-08-29] MEDS: ASCORBIC ACID 500 MG TAB PO SCH (17:59)
[2020-08-29] MEDS: KETOROLAC TROMETHAMINE 15 MG/ML VIAL IV SCH ×2 (17:59→22:47)
[2020-08-29] MEDS: FERROUS GLUCONATE 324 MG TAB PO SCH (17:59)
[2020-08-29] MEDS: TELMISARTAN 20 MG TAB PO SCH (19:04)
[2020-08-29] MEDS ORDERED: FAMOTIDINE 20 MG TAB PO SCH (21:00)
[2020-08-29] MEDS ORDERED: AMITRIPTYLINE HCL 25 MG TAB PO SCH (21:00)
[2020-08-29] MEDS ORDERED: SENNA 8.6 MG TAB PO SCH (21:00)
[2020-08-29] MEDS ORDERED: ATORVASTATIN 40 MG TAB PO SCH (21:00)
[2020-08-29] MEDS: DOCUSATE SODIUM 100 MG CAP PO SCH (21:10)
[2020-08-29] MEDS: ceFAZolin 1000MG 1,000 MG/7.5 ML SYR IV SCH (21:10)
[2020-08-29] MEDS: ASPIRIN 81 MG ECTAB PO SCH (21:10)
[2020-08-29] MEDS: BRIMONIDINE TARTRATE/TIMOLOL OPL SCH (21:12)
[2020-08-29] MEDS ORDERED: TRANEXAMIC ACID / 0.7% NACL 1,000 MG/100 ML BAG IV SCH (21:30)
[2020-08-29] MEDS: SODIUM CHLORIDE 0.9% 1000ML 1,000 ML IV SCH (21:57)
[2020-08-29] MEDS: ACETAMINOPHEN 500 MG TAB PO SCH (22:46)
[2020-08-30] MEDS: SODIUM CHLORIDE 0.9% 1000ML 1,000 ML IV SCH (05:21)
[2020-08-30] MEDS: KETOROLAC TROMETHAMINE 15 MG/ML VIAL IV SCH ×3 (06:03→16:22)
[2020-08-30] MEDS: ceFAZolin 1000MG 1,000 MG/7.5 ML SYR IV SCH (06:03)
[2020-08-30] MEDS: ACETAMINOPHEN 500 MG TAB PO SCH ×2 (06:04→14:04)
[2020-08-30 07:20] LABS: Hematocrit (blood only) 32.3 % (42-52); Hemoglobin 11.2 g/dL (14.0-18.0); Mean Corpuscular Hemoglobin 32.5 pg (25-34); Mean Corpuscular Hgb Conc 34.7 g/dL (32-36); Mean Corpuscular Volume 93.6 fL (80-100); Mean Platelet Volume 10.9 fL (7.4-10.4); Platelet Count 138 K/uL (130-400); RDW Coefficient of Variation 12.3 % (11.5-14.5); RDW Standard Deviation 42.1 fL (36.4-46.3); Red Blood Count 3.45 M/uL (4.7-6.1); White Blood Count 11.15 K/uL (4.8-10.8)
[2020-08-30 07:47] LABS: BUN Creatinine Ratio 16.5 (10-20); Calcium 8.5 mg/dl (8.5-10.1); Creatinine Clr Calc Pharmacy 67.8 ml/min; Est GFR (African American) 89.4; Est GFR (Non-African American) 77.1; Potassium 3.8 mmol/L (3.5-5.1)
[2020-08-30] MEDS: ASCORBIC ACID 500 MG TAB PO SCH (08:33)
[2020-08-30] MEDS: FERROUS GLUCONATE 324 MG TAB PO SCH (08:33)
[2020-08-30] MEDS: DOCUSATE SODIUM 100 MG CAP PO SCH (08:33)
[2020-08-30] MEDS: ASPIRIN 81 MG ECTAB PO SCH (08:34)
[2020-08-30] MEDS: BRIMONIDINE TARTRATE/TIMOLOL OPL SCH (08:34)
[2020-08-30] MEDS ORDERED: dilTIAZem ER 120 MG CAPCR PO SCH (09:00)
[2020-08-30] MEDS ORDERED: MULTIVITAMIN TAB PO SCH (09:00)
[2020-08-30] MEDS ORDERED: TAMSULOSIN HCL 0.4 MG CAP PO SCH (09:00)
[2020-08-30] MEDS ORDERED: TELMISARTAN 20 MG TAB PO SCH (09:00)
[2020-08-30] MEDS ORDERED: METOPROLOL SUCC 25MG EXT REL TAB PO SCH (09:00)
[2020-08-30] MEDS: TELMISARTAN 20 MG TAB PO SCH (09:06)
--- NOTE | 2020-08-30 15:14 | Progress Notes ---
DATE: 08/30/2020 SUBJECTIVE: A 75-year-old gentleman postop day 1 from a left knee replacement. He is doing well. Pain is controlled. No chest pain or shortness of breath. Not feeling dizzy or lightheaded. OBJECTIVE: VITAL SIGNS: Temperature 36.8. Vital signs stable. GENERAL: Shows a pleasant elderly male. He is sitting up in his bed and looks quite comfortable this morning. LUNGS: Clear to auscultation. HEART: Regular rate and rhythm. ABDOMEN: Soft, nontender, nondistended. EXTREMITIES: Grossly neurovascularly intact except as follows. Examination of the left lower extremity reveals the leg to be well aligned. Dressing is clean, dry, and intact. He can dorsiflex and plantarflex his foot appropriately. He is neurologically intact. LABORATORY DATA: Hemoglobin 11.2. Hematocrit 32.3. White cell count 11.15. Electrolytes are stable. ASSESSMENT: A 75-year-old gentleman postop day 1 from left knee replacement, doing pretty well. His pain is controlled. He is neurologically intact. PLAN: 1. DVT prophylaxis including thigh-high TEDs, SCDs, and aspirin twice a day. 2. PT/OT. Weight bear as tolerated. Left total knee protocol. 3. Pain control, doing pretty well with current pain regimen. 4. Disposition: He is planning to be discharged to home with home health. We will see how he does in therapy today, but possible discharge after therapy.
== END 2020-08-30 18:20 | disposition home health service (06) ==
LOC: 3E 10:29 → ASU 10:29